=== PATIENT | female | born 1960 | race Caucasian/White ===

== ENCOUNTER 2020-01-17 14:03 | Emergency (ER) | payer MEDICAID ==
[~2020-01-17] VITALS: Ht 160 cm; Wt 78.2 kg
[~2020-01-17 14:03] MED LIST: ADV50100 IH; ATOR10TA87 PO; CELE-193 PO; CLOP75TA35 PO; ESCI5TAB PO; ESOM40CA PO; FERR55TA PO; MORP30TA PO; SOLI10TA6 PO
--- NOTE | 2020-01-17 15:23 | NUR ---
pt is 59 yo female c/o left lower leg pain starting at midnight until 2am, "severe muscle cramp", pt said said she does take magnesium and drinks plenty of water, referred to ER from Dr Mack's office to r/o DVT, pt has no complaint of chest pain/SOB, amb with steady gait,
[2020-01-17] MEDS ORDERED: ketorolac tromethamine 15mg/ml inj. IM ONE (15:30)
[2020-01-17 16:37] VITALS: BP 151/49
== END 2020-01-17 16:39 | disposition home or self-care (01) ==
LOC: ER 14:03
DX: M79.605 Pain in left leg (principal); I25.10 Atherosclerotic heart disease of native coronary artery without angina pectoris; I25.2 Old myocardial infarction; J45.909 Unspecified asthma, uncomplicated; K21.9 Gastro-esophageal reflux disease without esophagitis; G89.29 Other chronic pain; F41.9 Anxiety disorder, unspecified; F32.9 Major depressive disorder, single episode, unspecified; Z98.890 Other specified postprocedural states; Z86.73 Personal history of transient ischemic attack (TIA), and cerebral infarction without residual deficits; Z88.8 Allergy status to other drugs, medicaments and biological substances; Z88.1 Allergy status to other antibiotic agents; Z88.5 Allergy status to narcotic agent; Z79.899 Other long term (current) drug therapy
CPT/HCPCS: 93971; 96372; 99284; J1885

== ENCOUNTER 2020-04-02 11:46 | Emergency (ER) | payer MEDICAID ==
[~2020-04-02] VITALS: Ht 157.5 cm; Wt 73.2 kg
[2020-04-02 12:17] LABS: BASOPHILS % (AUTO) 0.8 % (0-1); EOSINOPHILS % (AUTO) 0.9 % (0-6); HEMATOCRIT 39.7 % (35.0-45.0); HEMOGLOBIN 13.4 g/dl (12.0-16.0); LYMPHOCYTES % (AUTO) 19.8 % (21-51); MEAN CORPUSCULAR HEMOGLOBIN 29.6 PG (27.0-31.0); MEAN CORPUSCULAR HGB CONC 33.7 g/dL (33.0-36.5); MEAN CORPUSCULAR VOLUME 87.7 FL (78-98); MEAN PLATELET VOLUME 8.4 FL (7.4-10.4); MONOCYTES # (AUTO) 0.3 X10'3 (0-0.9); MONOCYTES % (AUTO) 6.7 % (2-12); NEUTROPHILS # (AUTO) 3.7 X10'3 (1.8-7.7); NEUTROPHILS % (AUTO) 71.8 % (42-75); PLATELET COUNT 189 X10'3 (140-440); RED BLOOD COUNT 4.53 X10'6 (4.20-5.60); RED CELL DISTRIBUTION WIDTH 14.9 % (11.5-14.5); WHITE BLOOD COUNT 5.1 X10'3 (4.5-11.0)
[2020-04-02 12:28] LABS: ALANINE AMINOTRANSFERASE 20 U/L (12-78); ALBUMIN 3.8 G/DL (3.4-5.0); ALBUMIN/GLOBULIN RATIO 1.3 (1.1-1.5); ALKALINE PHOSPHATASE 66 IU/L (46-116); ANION GAP 10 (8-16); ASPARTATE AMINO TRANSFERASE 25 U/L (10-37); BILIRUBIN,TOTAL 0.6 MG/DL (0.1-1.0); BLOOD UREA NITROGEN 22 MG/DL (7-18); BUN/CREATININE RATIO 22.7 (6.6-38.0); CALCIUM 8.7 MG/DL (8.5-10.1); CHLORIDE 112 MMOL/L (99-107); CREATININE 0.97 MG/DL (0.40-0.90); GLUCOSE 95 MG/DL (70-104); POTASSIUM 4.1 MMOL/L (3.5-5.1); SODIUM 144 MMOL/L (135-145); TOTAL CARBON DIOXIDE 21.9 MMOL/L (24-32); TOTAL PROTEIN 6.8 G/DL (6.4-8.2); eGFR 59 ML/MIN
[2020-04-02 13:07] VITALS: BP 156/67
[2020-04-02 13:54] LABS: COLOR,URINE YELLOW (Yellow); GLUCOSE, URINE NEGATIVE (Neg); KETONES,URINE NEGATIVE (Neg); LEUKOCYTE ESTERASE ,URINE TRACE (Neg); NITRITES, URINE NEGATIVE (Neg); OCCULT BLOOD,URINE NEGATIVE (Neg); PROTEIN,URINE NEGATIVE (Neg); UA COLLECTION TYPE CLN CATCH MIDSTREAM; UROBILINOGEN,URINE 0.2 E.U/dL (0.2-1.0)
--- NOTE | 2020-04-02 14:00 | NUR ---
Per MADAY Cuello, case #[id number] issued along with welfare check. Communicated to juice Cuello RN.
[2020-04-02 14:03] LABS: CLARITY,URINE SLIGHTLY CLOUDY (Clear)
[2020-04-02 14:04] LABS: BACTERIA,URINE FEW /HPF (Neg); RBC,URINE NONE SEEN /HPF (0-2); WBC,URINE 0-4 /HPF (0-4)
[2020-04-02 14:05] LABS: MUCUS STRANDS MODERATE /LPF (Neg); SQUAMOUS EPITHELIAL CELL,UR MODERATE /LPF (FEW)
--- NOTE | 2020-04-02 14:08 | NUR ---
Page sent to social services aide at this time per patient request for ride back home.
--- NOTE | 2020-04-02 14:15 | NUR ---
Spoke to Jennifer in implementation services analyst, she will come down and see patient
--- NOTE | 2020-04-02 14:59 | NUR ---
director of perioperative services saw patient says she is looking at [facility] [employer] ins to see if she can arrange transportation home, as pt is not in good enough health to go by bee
== END 2020-04-02 15:32 | disposition home or self-care (01) ==
LOC: ER 11:47
DX: R07.89 Other chest pain (principal); R06.02 Shortness of breath; R51 Headache; I25.10 Atherosclerotic heart disease of native coronary artery without angina pectoris; I25.2 Old myocardial infarction; J45.909 Unspecified asthma, uncomplicated; K21.9 Gastro-esophageal reflux disease without esophagitis; G89.29 Other chronic pain; F41.9 Anxiety disorder, unspecified; F32.9 Major depressive disorder, single episode, unspecified; Z86.73 Personal history of transient ischemic attack (TIA), and cerebral infarction without residual deficits; Z98.890 Other specified postprocedural states; Z88.8 Allergy status to other drugs, medicaments and biological substances; Z88.6 Allergy status to analgesic agent; Z88.1 Allergy status to other antibiotic agents; Z79.899 Other long term (current) drug therapy
CPT/HCPCS: 36415; 71045; 80053; 81001; 84484; 85025; 87088; 93005; 99285

== ENCOUNTER 2020-10-10 12:55 | Outpatient (CLI) | payer MEDICAID ==
[~2020-10-10 12:55] MED LIST changes: +CLOP75TA34 PO; -CLOP75TA35 PO
== END 2020-10-10 23:59 | disposition home or self-care (01) ==
LOC: CARD DIAG 12:55
PROVIDERS: ATTEND Internal Medicine Cardiovascular Disease
DX: I08.8 Other rheumatic multiple valve diseases (principal)
CPT/HCPCS: 93306